=== PATIENT | female | born 1995 | race Caucasian/White ===

== ENCOUNTER 2017-10-16 13:28 | Emergency (ER) | payer MEDICAID ==
[~2017-10-16] VITALS: Ht 165.1 cm; Wt 89.0 kg
[2017-10-16 13:40] VITALS: Ht 165.1 cm; Wt 89.0 kg
[2017-10-16] MEDS ORDERED: CEFTRIAXONE 250 MG INJ IM ONE (15:00)
[2017-10-16] MEDS ORDERED: AZITHROMYCIN 250 MG TAB PO ONE (15:00)
[2017-10-16 15:15] LABS: BASOPHILS % 0.6 % (0.0-2.0); EOSINOPHILS # 0.2 10^3/ul (0.0-0.5); EOSINOPHILS % 4.6 % (0.0-7.0); HEMATOCRIT 39.4 % (37.0-47.0); HEMOGLOBIN 13.1 g/dl (12.0-16.0); LYMPHOCYTES # 2.3 10^3/ul (0.8-2.9); LYMPHOCYTES % 43.4 % (15.0-51.0); MEAN CORPUSCULAR HEMOGLOBIN 29.5 pg (29.0-33.0); MEAN CORPUSCULAR HGB CONC 33.2 g/dl (32.0-37.0); MEAN CORPUSCULAR VOLUME 88.7 fl (82.0-101.0); MEAN PLATELET VOLUME 11.5 fl (7.4-10.4); MONOCYTE # 0.5 10^3/ul (0.3-0.9); MONOCYTES % 9.1 % (0.0-11.0); NEUTROPHIL # 2.2 10^3/ul (1.6-7.5); NEUTROPHILS % 42.1 % (39.0-77.0); PLATELET COUNT 254 10^3/UL (140-415); RED BLOOD COUNT 4.44 10^6/ul (4.20-5.40); RED CELL DISTRIBUTION WIDTH 14.1 % (11.5-14.5); WHITE BLOOD COUNT 5.2 10^3/ul (4.8-10.8)
[2017-10-16 15:24] LABS: ADD UMIC YES; UR ASCORBIC ACID NEGATIVE (NEGATIVE); UR BILIRUBIN (Dip) NEGATIVE (NEGATIVE); UR BLOOD (Dip) 3+ mg/dL (NEGATIVE); UR CLARITY SLIGHTLY CLOUDY (CLEAR); UR COLOR YELLOW (YELLOW); UR GLUCOSE (Dip) NEGATIVE (NEGATIVE); UR KETONES (Dip) NEGATIVE (NEGATIVE); UR LEUKOCYTE ESTERASE (Dip) TRACE Leu/ul (NEGATIVE); UR MUCUS FEW /HPF (NONE SEEN); UR NITRITE (Dip) NEGATIVE (NEGATIVE); UR RBC 1 /HPF (0-5); UR SPECIFIC GRAVITY (Dip) 1.019 (1.003-1.030); UR SQUAMOUS EPITHELIAL CELL FEW /HPF (FEW); UR TOTAL PROTEIN (Dip) NEGATIVE (NEGATIVE); UR UROBILINOGEN (Dip) NEGATIVE (NEGATIVE)
--- NOTE | 2017-10-16 15:43 | RADRPT ---
PROCEDURE: US Pelvis. CLINICAL INDICATION: pelvic pain TECHNIQUE: Multiple sonographic images of the pelvis were obtained utilizing a transabdominal and endovaginal technique. The images were reviewed on a PACS workstation. COMPARISON: None. FINDINGS: The uterus is normal in size with a normal appearance of the myometrium. The uterus measures 7.6 x 5.3 x 6.8 cm. The endometrial stripe is homogeneous in appearance and has the thickness of 6 mm. There is a small amount of fluid within the endometrial canal in the lower uterine segment. Normal Doppler flow is identified in both ovaries. The right ovary measures 1.1 x 0.7 x 1.2 cm. The left ovary measures 6.7 x 5.1 x 6.9 cm. There is a 6.2 x 4.4 cm simple cyst in the left ovary. No free fluid is present within the pelvis. RPTAT: AA IMPRESSION: Enlarged left ovary with a large simple cyst. Follow-up in 6 weeks is recommended. .Romeo Crockett MD, MD Date Time Electronically viewed and signed by .Romeo Crockett MD, MD on 10/16/2017 15:42 .S/
[2017-10-16] MEDS ORDERED: FLUC150T41 PO (16:33)
[2017-10-16] MEDS ORDERED: METR500T PO (16:33)
[2017-10-16] MEDS ORDERED: ACYC800T57 PO (16:34)
--- NOTE | 2017-10-16 16:52 | ERD ---
ER Documentation Chief Complaint Chief Complaint vag bleed x 1 week with abdominal cramps HPI 22-year-old female presents to the ER with her partner requesting to be tested for STDs. Patient has foul-smelling vaginal discharge. She also complains of vaginal sore. Patient states that she has been having vaginal bleeding, which is not her period. Patient states she only uses panty liners, and bleeding is light. Patient denies weakness, dizziness, shortness of breath. Is also complaining of pelvic pain. Pelvic pain is sharp in quality and located on the left side. Patient denies any fevers or chills. She denies any other abdominal pain. She denies nausea vomiting or diarrhea. Her last normal menstrual period was September 26, 2017. Patient is currently sexually active with her partner, her primary admits to sexually active with multiple women. ROS 12 point review of systems was done, all negative except per HPI. Medications Home Meds Active Scripts Acyclovir* (Zovirax*) 800 Mg Tablet, 800 MG PO 5 TIMES DAILY for 7 Days, TAB Prov:ALBA CLARK 10/16/17 Fluconazole* (Fluconazole*) 150 Mg Tablet, 150 MG PO DAILY for 1 Day, TAB Prov:ALBA CLARK 10/16/17 Metronidazole* (Flagyl*) 500 Mg Tablet, 500 MG PO TID for 7 Days, TAB Prov:ALBA CLARK 10/16/17 PMhx/Soc Medical and Surgical Hx: pt denies Medical Hx, pt denies Surgical Hx History of Surgery: No Anesthesia Reaction: No Hx Neurological Disorder: No Hx Respiratory Disorders: No Hx Cardiac Disorders: No Hx Psychiatric Problems: No Hx Miscellaneous Medical Probl: No Hx Alcohol Use: No Hx Substance Use: No Hx Tobacco Use: No Smoking Status: Never smoker Physical Exam Vitals Vital Signs Date Time Temp Pulse Resp B/P Pulse Ox O2 Delivery O2 Flow Rate FiO2 10/16/17 13:40 98.1 70 18 108/60 100 Physical Exam GENERAL: The patient is well developed and appropriate for usual state of health , in no apparent distress. HEENT: Atraumatic. CHEST: Clear to auscultation bilaterally. There are no rales, wheezes or rhonchi. HEART: Regular rate and rhythm. No murmurs, clicks, rubs or gallops. ABDOMEN: Soft, nontender and nondistended. Good bowel sounds. No rebound or guarding. No gross peritonitis. No gross organomegaly or masses. No Werner sign or McBurney point tenderness. +ttp to the lower left pelvic region BACK: No midline or flank tenderness. no cva tenderness : there is foul smelling clear-yellow vaginal discharge, there is one vesicular lesion to the bottom right labia majora. no adnexal pain. negative chandilier sign NEURO: Alert and oriented. SKIN: There is no apparent rash or petechia. The skin is warm and dry. Result Diagram: 10/16/17 1502 Results 24 hrs Laboratory Tests Test 10/16/17 15:02 White Blood Count 5.210^3/ul Red Blood Count 4.4410^6/ul Hemoglobin 13.1g/dl Hematocrit 39.4% Mean Corpuscular Volume 88.7fl Mean Corpuscular Hemoglobin 29.5pg Mean Corpuscular Hemoglobin Concent 33.2g/dl Red Cell Distribution Width 14.1% Platelet Count 22593^3/UL Mean Platelet Volume 11.5fl Neutrophils % 42.1% Lymphocytes % 43.4% Monocytes % 9.1% Eosinophils % 4.6% Basophils % 0.6% Nucleated Red Blood Cells % 0.0/100WBC Neutrophils # 2.210^3/ul Lymphocytes # 2.310^3/ul Monocytes # 0.510^3/ul Eosinophils # 0.210^3/ul Basophils # 0.010^3/ul Nucleated Red Blood Cells # 0.010^3/ul Urine Color YELLOW Urine Clarity SLIGHTLY CLOUDY Urine pH 5.0 Urine Specific [place] 1.019 Urine Ketones NEGATIVEmg/dL Urine Nitrite NEGATIVEmg/dL Urine Bilirubin NEGATIVEmg/dL Urine Urobilinogen NEGATIVEmg/dL Urine Leukocyte Esterase TRACELeu/ul Urine Microscopic RBC 1/HPF Urine Microscopic WBC 3/HPF Urine Squamous Epithelial Cells FEW/HPF Urine Mucus FEW/HPF Urine Hemoglobin 3+mg/dL Urine Glucose NEGATIVEmg/dL Urine Total Protein NEGATIVEmg/dl Current Medications Medications (Trade) Dose Ordered Sig/Lexi Route PRN Reason Start Time Stop Time Status Last Admin Dose Admin Ceftriaxone Sodium (Rocephin) 250 mg ONCE ONCE IM 10/16/17 15:00 10/16/17 15:01 DC 10/16/17 15:39 Azithromycin (Zithromax) 1,000 mg ONCE ONCE PO 10/16/17 15:00 10/16/17 15:01 DC 10/16/17 15:39 Procedures/MDM This is a 22-year-old female presents to the ER with vaginal discharge, vaginal bleeding, pelvic pain. Patient was performed still treated for chlamydia and gonorrhea as her partner admitted to having shortness with other women. Physical examination patient did have foul-smelling vaginal discharge, she will be treated for possible bacterial vaginosis and a yeast infection she also complained of vaginal itchiness. She did have one vesicular lesion, maybe herpes. She will also be given acyclovir. She was found to have an ovarian cyst on the left side which could be causing the pain she is describing. Patient is hemodynamically stable with no evidence of severe anemia. Patient is extremely well-appearing outpatient follow-up. I doubt pelvic inflammatory disease she does not have any adnexal tenderness. Patient is to follow-up with her primary care doctor within 1-2 days return to ER sooner if symptoms worsen. My medical decision making sure with the patient she understands and agrees with plan. Departure Diagnosis: Primary Impression: STD (female) Condition: Stable Patient Instructions: Understanding STDs Additional Instructions: Call your primary care doctor TOMORROW for an appointment during the next 1-2 days.See the doctor sooner or return here if your condition worsens before your appointment time. ALBA CLARK Oct 16, 2017 16:52
== END 2017-10-16 16:51 | disposition home or self-care (01) ==
LOC: FTE 13:28
DX: A64 Unspecified sexually transmitted disease (principal)
CPT/HCPCS: 76830; 76856; 81001; 85025; 87591; 96372; J0696; Z7502; Z7610

== ENCOUNTER 2018-06-04 02:51 | Emergency (ER) | END 2018-06-04 03:48 | disposition home or self-care (01) ==

== ENCOUNTER 2018-07-13 15:16 | Emergency (ER) | END 2018-07-13 19:18 | disposition home or self-care (01) ==

== ENCOUNTER 2018-07-24 06:43 | Emergency (ER) | END 2018-07-24 08:24 | disposition home or self-care (01) ==

== ENCOUNTER 2018-07-31 07:17 | Emergency (ER) | END 2018-07-31 09:29 | disposition home or self-care (01) ==

== ENCOUNTER 2018-09-11 13:02 | Emergency (ER) | END 2018-09-11 15:50 | disposition home or self-care (01) ==

== ENCOUNTER 2018-10-30 07:37 | Emergency (ER) | payer MEDICAID ==
[~2018-10-30] VITALS: Ht 170.2 cm; Wt 90.1 kg
[~2018-10-30 07:37] MED LIST: ACYC800T5 PO; FLUC150T41 PO; METR500T PO; NAPR-985 PO; NITR-58 PO; NORE-89 PO; PHEN-538 PO
[2018-10-30 07:39] VITALS: BP 120/71; PULSE 95; RESP 18; Ht 170.2 cm; Wt 90.1 kg
[2018-10-30] MEDS ORDERED: IBUP-1542 PO (08:44)
[2018-10-30] MEDS ORDERED: CEPH-443 PO (08:44)
[2018-10-30] MEDS ORDERED: SULF1TAB31 PO (08:44)
--- NOTE | 2018-10-30 09:43 | ERD ---
ER Documentation Chief Complaint Chief Complaint great toe ingrown toenail, left knee possible abscess and dysuria x 1 week HPI This is a 23-year-old female presents ED with multiple complaints. Patient is complaining of a left ingrown toenail of the left great toe that is been present for 7 weeks. Patient has been applying a warm compress to the foot but is still having pain. Patient is also complaining of dysuria for the past week and a half. Denies hematuria, back pain, fever, chills, nausea, vomiting, diarrhea, constipation. Patient is also complaining of a abscess to the left baker is been present for 3 days. ROS All systems reviewed and are negative except as per history of present illness. Medications Home Meds Active Scripts Ibuprofen* (Motrin*) 600 Mg Tab, 600 MG PO Q6, #30 TAB Prov:HARRIET GOMEZ PA-C 10/30/18 Cephalexin* (Keflex*) 500 Mg Capsule, 500 MG PO QID for 7 Days, CAP Prov:HARRIET GOMEZ PA-C 10/30/18 Sulfamethoxazole/Trimethoprim* (Bactrim Ds* Tablet) 1 Each Tablet, 1 TAB PO BID, #14 TAB Prov:HARRIET GOMEZ PA-C 10/30/18 Naproxen* (Naprosyn*) 500 Mg Tablet, 500 MG PO BID PRN for PAIN AND/OR INFLAMMATION, #30 TAB Prov:MYRA WINTERS PA-C 09/11/18 Norethindrone AC-Eth Estradiol (Loestrin 21 1.5-30 Tablet) 1 Each Tablet, 1 EACH PO DAILY, #30 TAB Prov:MYRA WINTERS PA-C 09/11/18 Naproxen* (Naprosyn*) 500 Mg Tablet, 500 MG PO BID PRN for PAIN AND/OR INFLAMMATION, #30 TAB Prov:GARRETT FARIAS PA-C 07/31/18 Phenazopyridine Hcl* (Pyridium*) 200 Mg Tab, 200 MG PO TID PRN for URINARY PAIN, #6 TAB Prov:SHARON VICTORIA NP 06/04/18 Nitrofurantoin Monohyd Macrocr* (Macrobid*) 100 Mg Capsr, 100 MG PO BID for 7 Days, CAP Prov:SHARON VICTORIA NP 06/04/18 Acyclovir* (Zovirax*) 800 Mg Tablet, 800 MG PO 5 TIMES DAILY for 7 Days, TAB Prov:ALBA CLARK 10/16/17 Fluconazole* (Fluconazole*) 150 Mg Tablet, 150 MG PO DAILY for 1 Day, TAB Prov:ALBA CLARK 10/16/17 Metronidazole* (Flagyl*) 500 Mg Tablet, 500 MG PO TID for 7 Days, TAB Prov:ALBA CLARK 10/16/17 Allergies Allergies: Coded Allergies: No Known Allergy (Unverified , 06/04/18) PMhx/Soc History of Surgery: No Anesthesia Reaction: No Hx Neurological Disorder: No Hx Respiratory Disorders: No Hx Cardiac Disorders: No Hx Psychiatric Problems: No Hx Miscellaneous Medical Probl: No Hx Alcohol Use: No Hx Substance Use: No Hx Tobacco Use: No Smoking Status: Never smoker FmHx Family History: No diabetes Physical Exam Vitals Vital Signs Date Temp Pulse Resp B/P (MAP) Pulse Ox O2 O2 Flow FiO2 Time Delivery Rate 10/30/18 97.1 95 18 120/71 99 07:39 (87) Physical Exam Const: No acute distress Head: Atraumatic Eyes: Normal Conjunctiva ENT: Normal External Ears, Nose and Mouth. Neck: Full range of motion. No meningismus. Resp: Clear to auscultation bilaterally Cardio: Regular rate and rhythm, no murmurs Abd: Soft, nondistended, no peritoneal signs, no rigidity, no surgical abdomen, bowel sounds present all 4 quadrants, nontender light deep palpation all 4 quadrants Skin: No petechiae or rashes, small half centimeter boil on the anterior surfa ce of patient's left baker. There is mild tenderness palpation, redness, no purulent drainage expressed Back: No midline or flank tenderness Ext: No cyanosis, or edema, left great toe with ingrown toenail Neur: Awake and alert Psych: Normal Mood and Affect Results 24 hrs Laboratory Tests Test 10/30/18 08:48 10/30/18 08:50 Bedside Urine pH (LAB) 5.5 Bedside Urine Protein (LAB) 1+ Bedside Urine Glucose (UA) Negative Bedside Urine Ketones (LAB) Negative Bedside Urine Blood 2+ Bedside Urine Nitrite (LAB) Positive Bedside Urine Leukocyte Esterase (L 2+ POC Beta HCG, Qualitative NEGATIVE Procedures/MDM LAB INTERPRETATION: Urine negative, urine dip positive for blood, nitrite and leukocyte esterase positive ER COURSE: The patient was stable throughout ED course. I kept the patient and/or family informed of laboratory and diagnostic imaging results throughout the emergency room course. The patient was promptly evaluated and a treatment plan was devised based on H&P and other data. This plan was discussed with the patient who agreed and had no further questions or concerns prior to discharge. MEDICAL DECISION MAKING: This is a 23-year-old female presents ED with multiple complaints including a left ingrown toenail, dysuria times 1-1/2 weeks as well as a growth on her left anterior baker. Urinalysis reflects UTI. Will treat patient for UTI. Patient also has a left ingrown toenail. Will treat patient with Keflex and Bactrim for this. As the Keflex will also have coverage for UTI. I offered incision and drainage of the small boil on patient's left anterior baker but she declines at this time. Advised warm compress to both left ingrown toenail and the small boil on patient's left anterior baker. At this time there is no genitourinary emergency or dermatologic emergency. No evidence of sepsis, obstructive pyelonephritis, SJS, toxic epidermal necrosis, among others. Vitals are stable patient can be managed close outpatient follow-up. Advised patient follow-up with primary care in the next 48 hours. Return to ED with any worsening symptoms DISPOSITION PLAN: We discussed follow up with the patient's primary care doctor within 24 to 48 hours. Patient counseled regarding my diagnostic impression and care plan. Prior to discharge all questions answered. Pt agrees with treatment plan and understands strict return precautions. Precautionary instructions provided including instructions to return to the ER if not improving or for any worsening or changing symptoms or concerns. SPECIALIST FOLLOW UP RECOMMENDED: None Patient has been advised to follow up with primary care in 1-2 days. Disclaimer: Inadvertent spelling and grammatical errors are likely due to EHR/ dictation software use and do not reflect on the overall quality of patient care. Also, please note that the electronic time recorded on this note does not necessarily reflect the actual time of the patient encounter. Departure Diagnosis: Primary Impression: Ingrown left greater toenail Additional Impressions: Boil UTI (urinary tract infection) Urinary tract infection type: site unspecified Hematuria presence: without hematuria Qualified Codes: N39.0 - Urinary tract infection, site not specified Condition: Stable Patient Instructions: Understanding Urinary Tract Infections (UTIs), Abscess, Antiobiotic Treatment Only, Ingrown Toenail, Infected (Abx Only) Referrals: COMMUNITY CLINICS YOU HAVE RECEIVED A MEDICAL SCREENING EXAM AND THE RESULTS INDICATE THAT YOU DO NOT HAVE A CONDITION THAT REQUIRES URGENT TREATMENT IN THE EMERGENCY DEPARTMENT. FURTHER EVALUATION AND TREATMENT OF YOUR CONDITION CAN WAIT UNTIL YOU ARE SEEN IN YOUR DOCTORS OFFICE WITHIN THE NEXT 1-2 DAYS. IT IS YOUR RESPONSIBILITY TO MAKE AN APPOINTMENT FOR FOLOW-UP CARE. IF YOU HAVE A PRIMARY DOCTOR --you should call your primary doctor and schedule an appointment IF YOU DO NOT HAVE A PRIMARY DOCTOR YOU CAN CALL OUR PHYSICIAN REFERRAL HOTLINE AT IF YOU CAN NOT AFFORD TO SEE A PHYSICIAN YOU CAN CHOSE FROM THE FOLLOWING [facility] [address] [facility]. [facility] [address] [facility] [facility] [address] [facility] [address] [facility] [address] [facility]. [facility] [address] Additional Instructions: Patient advised to return to the ED immediately for new or worsening symptoms. Patient advised to follow up with primary care provider in the next 24-48 hours. Patient verbalized understanding and agrees with treatment plan and course of action. If patient has no primary care they may follow up with one of the [facility] listed on the following page or one of the options listed below [facility] + [facility] [address] [place] [id number] or [facility] [address] [place] [address] or [facility] [address] [place] [address] HARRIET GOMEZ PA-C Oct 30, 2018 09:43
== END 2018-10-30 09:33 | disposition home or self-care (01) ==
LOC: FTE 07:37
DX: L60.0 Ingrowing nail (principal); N39.0 Urinary tract infection, site not specified; L02.426 Furuncle of left lower limb
CPT/HCPCS: 81003; 81025; Z7502; 99283

== ENCOUNTER 2019-01-06 15:29 | Emergency (ER) | payer MEDICAID ==
[~2019-01-06] VITALS: Ht 172.7 cm; Wt 90.0 kg
[~2019-01-06 15:29] MED LIST changes: +CEPH-443 PO; +IBUP-1542 PO; +SULF1TAB31 PO
[2019-01-06 15:50] VITALS: Ht 172.7 cm; Wt 90.0 kg
[2019-01-06] MEDS ORDERED: MUPI22OI2 TOP (20:28)
[2019-01-06] MEDS ORDERED: IBUP-1542 PO (20:28)
[2019-01-06] MEDS ORDERED: CEPH-443 PO (20:28)
[2019-01-06] MEDS ORDERED: CEPHALEXIN 500 MG CAP PO ONE (20:30)
[2019-01-06] MEDS ORDERED: IBUPROFEN 600 MG TAB PO ONE (20:30)
--- NOTE | 2019-01-06 20:30 | ERD ---
ER Documentation Chief Complaint Chief Complaint RIGHT 1ST TOE NAIL PROBLEM HPI 23-year-old female presents with some redness and irritation on the lateral aspect of right big toenail for the last few days. She has similar episode in her left big toe which improved with warm soaks and antibiotics. Patient does not have a history of nail avulsion and denies any history of trauma. ROS All systems reviewed and are negative except as per history of present illness. Medications Home Meds Active Scripts Mupirocin* (Bactroban*) 2% -22 Gram Oint...g., 1 APPLIC TOP TID for 7 Days, #1 TUB SITE OF APPLICATION: Prov:MERCEDES NICHOLAS MD 01/06/19 Ibuprofen* (Motrin*) 600 Mg Tab, 600 MG PO Q6, #20 TAB Prov:MERCEDES NICHOLAS MD 01/06/19 Cephalexin* (Keflex*) 500 Mg Capsule, 500 MG PO QID for 7 Days, CAP Prov:MERCEDES NICHOLAS MD 01/06/19 Ibuprofen* (Motrin*) 600 Mg Tab, 600 MG PO Q6, #30 TAB Prov:HARRIET GOMEZ PA-C 10/30/18 Cephalexin* (Keflex*) 500 Mg Capsule, 500 MG PO QID for 7 Days, CAP Prov:HARRIET GOMEZ PA-C 10/30/18 Sulfamethoxazole/Trimethoprim* (Bactrim Ds* Tablet) 1 Each Tablet, 1 TAB PO BID, #14 TAB Prov:HARRIET GOMEZ PA-C 10/30/18 Naproxen* (Naprosyn*) 500 Mg Tablet, 500 MG PO BID PRN for PAIN AND/OR INFLAMMATION, #30 TAB Prov:MYRA WINTERS PA-C 09/11/18 Norethindrone AC-Eth Estradiol (Loestrin 21 1.5-30 Tablet) 1 Each Tablet, 1 EACH PO DAILY, #30 TAB Prov:MYRA WINTERS PA-C 09/11/18 Naproxen* (Naprosyn*) 500 Mg Tablet, 500 MG PO BID PRN for PAIN AND/OR INFLAMMATION, #30 TAB Prov:GARRETT FARIAS PA-C 07/31/18 Phenazopyridine Hcl* (Pyridium*) 200 Mg Tab, 200 MG PO TID PRN for URINARY PAIN, #6 TAB Prov:SHARON VICTORIA [employer]ING [employer]EC[employer] 06/04/18 Nitrofurantoin Monohyd Macrocr* (Macrobid*) 100 Mg Capsr, 100 MG PO BID for 7 Days, CAP Prov:SHARON VICTORIA. [employer]ING [employer]EC[employer] 06/04/18 Acyclovir* (Zovirax*) 800 Mg Tablet, 800 MG PO 5 TIMES DAILY for 7 Days, TAB Prov:ALBA CLARK Jaye 10/16/17 Fluconazole* (Fluconazole*) 150 Mg Tablet, 150 MG PO DAILY for 1 Day, TAB Prov:ALBA CLARK C 10/16/17 Metronidazole* (Flagyl*) 500 Mg Tablet, 500 MG PO TID for 7 Days, TAB Prov:ALBA CLARK C 10/16/17 Allergies Allergies: Coded Allergies: No Known Allergy (Unverified , 06/04/18) PMhx/Soc History of Surgery: No Anesthesia Reaction: No Hx Neurological Disorder: No Hx Respiratory Disorders: No Hx Cardiac Disorders: No Hx Psychiatric Problems: No Hx Miscellaneous Medical Probl: No Hx Alcohol Use: No Hx Substance Use: No Hx Tobacco Use: No Smoking Status: Never smoker Physical Exam Vitals Vital Signs Date Temp Pulse Resp B/P (MAP) Pulse Ox O2 O2 Flow FiO2 Time Delivery Rate 01/06/19 98.6 71 18 118/72 99 Room Air 20:35 (87) 01/06/19 98.5 69 18 114/82 99 15:50 (93) Physical Exam Const: No acute distress Head: Atraumatic Eyes: Normal Conjunctiva ENT: Normal External Ears, Nose and Mouth. Neck: Full range of motion. No meningismus. Resp: Clear to auscultation bilaterally Cardio: Regular rate and rhythm, no murmurs Abd: Soft, non tender, non distended. Normal bowel sounds Skin: No petechiae or rashes Back: No midline or flank tenderness Ext: No cyanosis, or edema. Mild redness and swelling on the ingrown portion of her right big toenail. No significant erythema or swelling. No restricted range of motion weakness or deformities. Neur: Awake and alert Psych: Normal Mood and Affect Results 24 hrs Current Medications Medications Dose Sig/Lexi Start Time Status Last (Trade) Ordered Route PRN Stop Time Admin Dose Reason Admin Cephalexin 500 mg ONCE ONCE 01/06/19 DC 01/06/19 (Keflex) PO 20:30 20:31 01/06/19 20:31 Ibuprofen 600 mg ONCE ONCE 01/06/19 DC 01/06/19 (Motrin) PO 20:30 20:31 01/06/19 20:31 Procedures/MDM Patient presents with signs and symptoms of ingrown toenail in the right big toe without signs or symptoms to suggest ostium myelitis, fracture, dislocation, significant synovitis. Patient declines nail avulsion. Patient will be treated with Keflex, instructed for warm soaks and return precautions for worsening r edness, no improvement, additional new or worsening symptoms with primary care doctor. Patient was counseled may be nail avulsion but declines. The patient was stable with no new complaints during the ER course. Clinically, there is no current evidence to suggest meningitis, sepsis, acute abdomen, pneumonia, stroke, acute coronary syndrome, pulmonary embolism, aortic dissection or any other emergent condition appearing to require further evaluation or hospitalization. Patient counseled regarding my diagnostic impression and care plan. Prior to discharge all questions answered. Pt agrees with treatment plan and understands strict return precautions. Pt is instructed to follow up with primary care provider within 24-48 hours. Precautionary instructions provided including instructions to return to the ER if not improving or for any worsening or changing symptoms or concerns. Departure Diagnosis: Primary Impression: Ingrown toenail of right foot Condition: Stable Patient Instructions: Ingrown Toenail, Infected (Abx Only) Additional Instructions: Warm soaks at home. Recheck for worsening redness or no improvement despite antibiotics. May need removal of ingrown portion of toenail. MERCEDES NICHOLAS MD Jan 06, 2019 20:30
[2019-01-06 20:35] VITALS: BP 118/72; PULSE 71; RESP 18
== END 2019-01-06 20:40 | disposition home or self-care (01) ==
LOC: FTE 15:29
DX: L60.0 Ingrowing nail (principal)
CPT/HCPCS: Z7502; Z7610; 99283